=== PATIENT | male | born 1960 | race Caucasian/White ===

== ENCOUNTER 2019-04-29 10:41 | Emergency (ER) | payer BC, OTHER ==
[~2019-04-29] VITALS: Ht 182.9 cm; Wt 127.0 kg
[~2019-04-29 10:41] MED LIST: ATEN50TA; HYDR-4100; TRAZ150T77
--- NOTE | 2019-04-29 10:52 | NUR ---
Placed in room 1. Placed on threat monitoring analyst, blood pressure machine and pulse oximeter. To gown for exam. Side rails up. Report given to Zeenat GRIMM.
[2019-04-29 10:53] VITALS: BP_SYST 124
--- NOTE | 2019-04-29 10:55 | NUR ---
ER Dr. Waller at bedside examining patient.
--- NOTE | 2019-04-29 11:00 | NUR ---
Patient presented to ER with C/o chest pain & near syncope episode. Patient A&Ox4, ambulatory with cane to ER, C/o chest pain since Monday, denies N/v/d, pain 04/03. Patient states he had a near syncope episode at home today while he was ambullating up stairs at home, causing fall. Patient denies hitting head, denies KO.
[2019-04-29] MEDS ORDERED: NACL 0.9% 1,000 ML IV ONE (11:15)
[2019-04-29 11:30] LABS: BASOPHILS % (AUTO) 0.5 % (0.0-2.0); EOSINOPHILS # (AUTO) 0.2 K/uL (0.0-0.4); EOSINOPHILS % (AUTO) 3.2 % (0.0-4.0); HEMATOCRIT 43.5 % (36-54); LYMPHOCYTES # (AUTO) 1.7 K/uL (1.0-5.5); LYMPHOCYTES % (AUTO) 26.1 % (20.5-51.5); MEAN CORPUSCULAR HEMOGLOBIN 35 pg (27-31); MEAN CORPUSCULAR HGB CONC 35 % (32-36); MEAN CORPUSCULAR VOLUME 100 fL (79.0-98.0); MONOCYTES # (AUTO) 0.8 K/uL (0.0-1.0); NEUTROPHILS # (AUTO) 3.8 K/uL (1.8-7.7); NEUTROPHILS % (AUTO) 58.2 % (40.0-70.0); PLATELET COUNT (AUTO) 205 K/uL (130-430); RED BLOOD CELL COUNT(AUTO) 4.34 MIL/uL (4.2-6.2); RED CELL DISTRIBUTION WIDTH 14.2 % (9.0-15.0); WHITE BLOOD COUNT (AUTO) 6.6 K/uL (4.8-10.8)
[2019-04-29] MEDS ORDERED: fentaNYL CITRATE/PF 100 MCG/2 ML AMP IVP ONE (11:30)
[2019-04-29 11:37] LABS: CALCIUM 8.9 mg/dL (8.4-11.0); CREATININE 1.15 mg/dL (0.55-1.30); POTASSIUM 3.6 mmol/L (3.5-5.1)
[2019-04-29 11:41] LABS: INR 0.9 (0.80-1.20); PROTHROMBIN TIME 9.4 SECS (9.5-12.5)
[2019-04-29 11:43] LABS: ALBUMIN 3.3 g/dL (3.4-4.8); TOTAL BILIRUBIN 1.9 mg/dL (0.0-1.0)
--- NOTE | 2019-04-29 11:52 | NUR ---
Radiology at bedside
[2019-04-29] MEDS ORDERED: IOHEXOL 350 mgI/mL, 150 ML INFUS..BTL IV ONE (12:07)
--- NOTE | 2019-04-29 13:18 | NUR ---
Patient does not wish to proceed with medical care recommended by Dr. Villafuerte. Patient given information related to possible complications, up to and including , which could occur as a result of leaving hospital at this time. Patient verbalizes understanding of risks involved leaving against medical advice. Patient has signed AMA form.
== END 2019-04-29 13:18 | disposition home or self-care (01) ==
LOC: SED 10:41
DX: S92.512A Displaced fracture of proximal phalanx of left lesser toe(s), initial encounter for closed fracture (principal); R07.89 Other chest pain; R06.00 Dyspnea, unspecified; F17.210 Nicotine dependence, cigarettes, uncomplicated; I10 Essential (primary) hypertension; E78.00 Pure hypercholesterolemia, unspecified; E66.9 Obesity, unspecified; Z68.38 Body mass index [BMI] 38.0-38.9, adult; Z71.6 Tobacco abuse counseling; Z98.84 Bariatric surgery status; Z88.6 Allergy status to analgesic agent; Z88.8 Allergy status to other drugs, medicaments and biological substances; Z79.899 Other long term (current) drug therapy; W19.XXXA Unspecified fall, initial encounter; Y93.89 Activity, other specified; Y92.099 Unspecified place in other non-institutional residence as the place of occurrence of the external cause; Y99.8 Other external cause status
CPT/HCPCS: 36415; 71045; 71275; 73590; 73610; 73630; 80053; 82550; 83880; 84484; 85025; 85610; 85730; 93971; 96361; 96374; 99284; J3010; J7030; Q9967

== ENCOUNTER 2019-05-28 19:48 | Inpatient (IN) | payer OTHER ==
[~2019-05-28] VITALS: Ht 185.4 cm; Wt 131.5 kg
[2019-05-28 20:09] VITALS: BP_SYST 124
[2019-05-28] MEDS ORDERED: NALOXONE HCL 0.4 MG/ML AMP (NARCAN) ONE (20:29)
[2019-05-28] MEDS ORDERED: NACL 0.9% 1,000 ML IV ONE (20:30)
[2019-05-28] MEDS ORDERED: NALOXONE HCL 0.4 MG/ML AMP (NARCAN) IVP ONE ×2 (20:30→21:15)
[2019-05-28 20:52] LABS: BASOPHILS % (AUTO) 0.3 % (0.0-2.0); EOSINOPHILS # (AUTO) 0.3 K/uL (0.0-0.4); EOSINOPHILS % (AUTO) 2.9 % (0.0-4.0); HEMATOCRIT 38.8 % (36-54); HEMOGLOBIN 13.1 g/dL (14.0-18.0); LYMPHOCYTES # (AUTO) 1.5 K/uL (1.0-5.5); LYMPHOCYTES % (AUTO) 16.3 % (20.5-51.5); MEAN CORPUSCULAR HEMOGLOBIN 35 pg (27-31); MEAN CORPUSCULAR HGB CONC 34 % (32-36); MEAN CORPUSCULAR VOLUME 103 fL (79.0-98.0); MONOCYTES % (AUTO) 10.7 % (1.7-9.3); NEUTROPHILS # (AUTO) 6.6 K/uL (1.8-7.7); NEUTROPHILS % (AUTO) 69.8 % (40.0-70.0); PLATELET COUNT (AUTO) 279 K/uL (130-430); RED BLOOD CELL COUNT(AUTO) 3.78 MIL/uL (4.2-6.2); RED CELL DISTRIBUTION WIDTH 15.3 % (9.0-15.0); WHITE BLOOD COUNT (AUTO) 9.4 K/uL (4.8-10.8)
[2019-05-28 21:07] LABS: ANION GAP 13 (5-15); CALCIUM 9.5 mg/dL (8.4-11.0); CHLORIDE 106 mmol/L (98-107); CREATININE 2.26 mg/dL (0.55-1.30); GLUCOSE 101 mg/dL (70-99); SODIUM SERUM 142 mmol/L (136-145); UREA NITROGEN, BLOOD 31 mg/dL (8-21)
[2019-05-28 21:08] LABS: BILIRUBIN,URINE 1+ (NEGATIVE); BLOOD, URINE NEGATIVE (NEGATIVE); CLARITY/URINE CLEAR (CLEAR); COLOR,URINE YELLOW (YELLOW); GFR AFRICAN AMERICAN 38 mL/min (>90); GLUCOSE,URINE NEGATIVE (NEGATIVE); KETONES,URINE TRACE (NEGATIVE); LEUKOCYTE ESTERASE ,URINE NEGATIVE (NEGATIVE); NITRITE, URINE NEGATIVE (NEGATIVE); PROTEIN URINE NEGATIVE (NEGATIVE); UROBILINOGEN,URINE 0.2 (0.2-1.0)
[2019-05-28 21:13] LABS: ACETAMINOPHEN 11 ug/mL (1-30); ALANINE AMINOTRANSFERASE 49 U/L (12-78); ALBUMIN 3.3 g/dL (3.4-4.8); ASPARTATE AMINOTRANSFERASE 94 U/L (10-37); TOTAL BILIRUBIN 0.7 mg/dL (0.0-1.0)
[2019-05-28 21:14] LABS: ALCOHOL, BLOOD < 3 mg/dL (<10)
[2019-05-28 21:37] LABS: BARBITURATE, URINE NEGATIVE (NEG <=200); BENZODIAZEPINE, URINE POSITIVE (NEG <=150); CANNABINOID, URINE POSITIVE (NEG <=50); COCAINE, URINE NEGATIVE (NEG <=150); METHAMPHETAMINES SCREEN,URINE NEGATIVE (NEG <=500); OPIATE, URINE POSITIVE (NEG <=100); PHENCYCLIDINE SCREEN,URINE NEGATIVE (NEG <=25); UR TRICYCLIC ANTIDEPRESSANTS NEGATIVE (NEG <=300); URINE AMPHETAMINE NEGATIVE (NEG <=500); URINE METHADONE NEGATIVE (NEG <=200); URINE OXYCODONE SCREEN POSITIVE (NEG <=100); URINE PROPOXYPHENE SCREEN NEGATIVE (NEG <=300)
[2019-05-28] MEDS ORDERED: FLUMAZENIL 0.1 MG/ML IVP ONE (22:00)
[2019-05-28] MEDS ORDERED: D5W IV ONE ×3 (23:15)
[2019-05-28] MEDS ORDERED: ACETYLCYSTEINE IV ONE ×3 (23:15)
[2019-05-29] VITALS (7 sets, daily range): BP systolic 110–137
[2019-05-29] MEDS ORDERED: ALBUTEROL SULFATE 0.083% 2.5 MG/3 ML VIAL.NEB INH PRN
[2019-05-29] MEDS ORDERED: ONDANSETRON HCL 4 MG/2 ML VIAL IVP PRN
[2019-05-29] MEDS: NACL 0.9% 1,000 ML IV SCH ×3 (02:18→15:40)
[2019-05-29] MEDS ORDERED: ACETYLCYSTEINE IV 6000 MG/30 ML VIAL IV ONE ×2 (03:39→04:00)
[2019-05-29 06:16] LABS: BASOPHILS % (AUTO) 0.4 % (0.0-2.0); EOSINOPHILS # (AUTO) 0.2 K/uL (0.0-0.4); EOSINOPHILS % (AUTO) 2.7 % (0.0-4.0); HEMATOCRIT 36.6 % (36-54); HEMOGLOBIN 12.2 g/dL (14.0-18.0); LYMPHOCYTES # (AUTO) 1.8 K/uL (1.0-5.5); LYMPHOCYTES % (AUTO) 21.7 % (20.5-51.5); MEAN CORPUSCULAR HEMOGLOBIN 34 pg (27-31); MEAN CORPUSCULAR HGB CONC 33 % (32-36); MEAN CORPUSCULAR VOLUME 104 fL (79.0-98.0); MONOCYTES # (AUTO) 0.9 K/uL (0.0-1.0); MONOCYTES % (AUTO) 10.3 % (1.7-9.3); NEUTROPHILS # (AUTO) 5.4 K/uL (1.8-7.7); NEUTROPHILS % (AUTO) 64.9 % (40.0-70.0); PLATELET COUNT (AUTO) 267 K/uL (130-430); RED BLOOD CELL COUNT(AUTO) 3.53 MIL/uL (4.2-6.2); RED CELL DISTRIBUTION WIDTH 15.1 % (9.0-15.0); WHITE BLOOD COUNT (AUTO) 8.4 K/uL (4.8-10.8)
[2019-05-29 07:01] LABS: ALBUMIN 2.8 g/dL (3.4-4.8); CALCIUM 8.6 mg/dL (8.4-11.0); CREATININE 1.28 mg/dL (0.55-1.30); POTASSIUM 3.9 mmol/L (3.5-5.1); TOTAL BILIRUBIN 0.6 mg/dL (0.0-1.0)
[2019-05-29] MEDS: ATENOLOL 50 MG TABLET (TENORMIN) PO SCH (09:37)
[2019-05-29] MEDS: MORPHINE 2 MG/ML INJ. SYRINGE IVP PRN ×3 (09:37→22:26)
[2019-05-29] MEDS ORDERED: HEPARIN 25,000 UNITS/D5W 250ML 250 ML IV PRN (11:45)
[2019-05-29] MEDS ORDERED: *HEPARIN PER PHARMACY XX PRN (13:45)
[2019-05-29] MEDS: BALSAM PERU/CASTOR OIL 60 GM OINT...G. TP SCH (13:53)
[2019-05-29] MEDS ORDERED: HEPARIN SODIUM,PORCINE 5000 UNITS/ML VIAL IV ONE (14:00)
[2019-05-29] MEDS ORDERED: HEPARIN SODIUM,PORCINE 3000 UNITS/0.6 ML BOLUS IVP PRN (14:00)
[2019-05-29] MEDS ORDERED: HEPARIN SODIUM,PORCINE 2000 UNITS/0.4 ML BOLUS IVP PRN (14:00)
[2019-05-29] MEDS: HEPARIN 25,000 UNITS/D5W 250ML 250 ML IV PRN (15:22)
[2019-05-29] MEDS ORDERED: IPRATROPIUM/ALBUTEROL SULFATE 3 ML AMPUL.NEB (DUONEB) INH PRN (16:30)
[2019-05-29] MEDS: LORazepam 2 MG/ML VIAL IVP PRN (20:09)
[2019-05-29] MEDS: IPRATROPIUM/ALBUTEROL SULFATE 3 ML AMPUL.NEB (DUONEB) INH SCH (20:45)
[2019-05-30 00:22] VITALS: BP_SYST 126
[2019-05-30] MEDS: NACL 0.9% 1,000 ML IV SCH (01:34)
[2019-05-30 03:15] LABS: BASOPHILS # (AUTO) 0.1 K/uL (0.0-0.2); EOSINOPHILS # (AUTO) 0.2 K/uL (0.0-0.4); EOSINOPHILS % (AUTO) 3.5 % (0.0-4.0); HEMATOCRIT 34.6 % (36-54); HEMOGLOBIN 11.7 g/dL (14.0-18.0); LYMPHOCYTES # (AUTO) 2.1 K/uL (1.0-5.5); LYMPHOCYTES % (AUTO) 29.9 % (20.5-51.5); MEAN CORPUSCULAR HEMOGLOBIN 35 pg (27-31); MEAN CORPUSCULAR HGB CONC 34 % (32-36); MEAN CORPUSCULAR VOLUME 102 fL (79.0-98.0); MONOCYTES # (AUTO) 0.7 K/uL (0.0-1.0); MONOCYTES % (AUTO) 9.6 % (1.7-9.3); NEUTROPHILS # (AUTO) 3.8 K/uL (1.8-7.7); PLATELET COUNT (AUTO) 258 K/uL (130-430); RED BLOOD CELL COUNT(AUTO) 3.38 MIL/uL (4.2-6.2); RED CELL DISTRIBUTION WIDTH 15.7 % (9.0-15.0); WHITE BLOOD COUNT (AUTO) 6.9 K/uL (4.8-10.8)
[2019-05-30 03:29] LABS: PROTHROMBIN TIME 10.6 SECS (9.5-12.5)
[2019-05-30 03:30] LABS: ALBUMIN 2.4 g/dL (3.4-4.8); CALCIUM 8.3 mg/dL (8.4-11.0); CREATININE 0.75 mg/dL (0.55-1.30); POTASSIUM 3.2 mmol/L (3.5-5.1); TOTAL BILIRUBIN 0.3 mg/dL (0.0-1.0)
[2019-05-30] MEDS: HEPARIN 25,000 UNITS/D5W 250ML 250 ML IV PRN ×4 (04:29→20:38)
[2019-05-30] MEDS: LORazepam 2 MG/ML VIAL IVP PRN ×3 (06:24→20:46)
[2019-05-30] MEDS: IPRATROPIUM/ALBUTEROL SULFATE 3 ML AMPUL.NEB (DUONEB) INH SCH ×3 (07:00→21:00)
[2019-05-30] MEDS ORDERED: chlordiazePOXIDE HCL 25 MG CAPSULE PO ONE (08:00)
[2019-05-30] MEDS ORDERED: THIAMINE HCL 100 MG TABLET PO ONE (08:00)
[2019-05-30 08:21] VITALS: BP_SYST 136
[2019-05-30] MEDS: ATENOLOL 50 MG TABLET (TENORMIN) PO SCH (08:26)
[2019-05-30] MEDS ORDERED: POTASSIUM CHLORIDE 20 MEQ TAB.PRT.SR PO ONE (09:45)
[2019-05-30 11:10] LABS: ALBUMIN 2.4 g/dL (3.4-4.8); BILIRUBIN,DIRECT 0.1 mg/dL (0.0-0.3); TOTAL BILIRUBIN 0.4 mg/dL (0.0-1.0)
[2019-05-30 12:22] VITALS: BP_SYST 148
[2019-05-30] MEDS: MORPHINE 2 MG/ML INJ. SYRINGE IVP PRN ×3 (12:46→21:23)
[2019-05-30] MEDS: chlordiazePOXIDE HCL 25 MG CAPSULE PO SCH ×2 (14:38→20:45)
[2019-05-30] MEDS: BALSAM PERU/CASTOR OIL 60 GM OINT...G. TP SCH (15:24)
[2019-05-30 16:23] VITALS: BP_SYST 154
[2019-05-30] MEDS ORDERED: WARFARIN SODIUM 5 MG TABLET PO ONE (18:00)
[2019-05-30 20:00] VITALS: BP_SYST 139
[2019-05-30] MEDS ORDERED: HEPARIN 25,000 UNITS/D5W 250ML 250 ML IV ONE (20:04)
[2019-05-30] MEDS: TEMAZEPAM 15 MG CAPSULE PO PRN (23:59)
[2019-05-31] VITALS: BP_SYST 157
[2019-05-31] MEDS: LORazepam 2 MG/ML VIAL IVP PRN ×3 (01:36→22:20)
[2019-05-31 03:12] LABS: BASOPHILS # (AUTO) 0.1 K/uL (0.0-0.2); BASOPHILS % (AUTO) 0.9 % (0.0-2.0); EOSINOPHILS # (AUTO) 0.3 K/uL (0.0-0.4); EOSINOPHILS % (AUTO) 3.6 % (0.0-4.0); HEMATOCRIT 34.5 % (36-54); HEMOGLOBIN 11.7 g/dL (14.0-18.0); LYMPHOCYTES # (AUTO) 2.6 K/uL (1.0-5.5); MEAN CORPUSCULAR HEMOGLOBIN 35 pg (27-31); MEAN CORPUSCULAR HGB CONC 34 % (32-36); MEAN CORPUSCULAR VOLUME 104 fL (79.0-98.0); MONOCYTES # (AUTO) 0.7 K/uL (0.0-1.0); MONOCYTES % (AUTO) 8.9 % (1.7-9.3); NEUTROPHILS # (AUTO) 4.6 K/uL (1.8-7.7); NEUTROPHILS % (AUTO) 55.6 % (40.0-70.0); PLATELET COUNT (AUTO) 253 K/uL (130-430); RED BLOOD CELL COUNT(AUTO) 3.34 MIL/uL (4.2-6.2); RED CELL DISTRIBUTION WIDTH 15.1 % (9.0-15.0); WHITE BLOOD COUNT (AUTO) 8.3 K/uL (4.8-10.8)
[2019-05-31 03:30] LABS: ALBUMIN 2.6 g/dL (3.4-4.8); CALCIUM 8.8 mg/dL (8.4-11.0); CREATININE 0.9 mg/dL (0.55-1.30); TOTAL BILIRUBIN 0.3 mg/dL (0.0-1.0)
[2019-05-31 03:38] LABS: PROTHROMBIN TIME 10.6 SECS (9.5-12.5)
[2019-05-31] MEDS: IPRATROPIUM/ALBUTEROL SULFATE 3 ML AMPUL.NEB (DUONEB) INH SCH ×2 (07:00→21:00)
[2019-05-31 08:05] VITALS: BP_SYST 156
[2019-05-31] MEDS: HEPARIN 25,000 UNITS/D5W 250ML 250 ML IV PRN ×2 (08:20→20:27)
[2019-05-31] MEDS: THIAMINE HCL 100 MG TABLET PO SCH (08:23)
[2019-05-31] MEDS: chlordiazePOXIDE HCL 25 MG CAPSULE PO SCH ×3 (08:23→20:36)
[2019-05-31] MEDS: MORPHINE 2 MG/ML INJ. SYRINGE IVP PRN ×4 (08:24→23:14)
[2019-05-31] MEDS: ATENOLOL 50 MG TABLET (TENORMIN) PO SCH (08:24)
[2019-05-31 12:34] VITALS: BP_SYST 148
[2019-05-31 16:53] VITALS: BP_SYST 150
[2019-05-31] MEDS ORDERED: WARFARIN SODIUM 7.5 MG TABLET PO SCH (18:00)
[2019-05-31] MEDS: BALSAM PERU/CASTOR OIL 60 GM OINT...G. TP SCH (18:55)
[2019-05-31] MEDS: TEMAZEPAM 15 MG CAPSULE PO PRN (22:21)
[2019-05-31] MEDS ORDERED: MORPHINE 2 MG/ML INJ. SYRINGE IVP PRN (23:00)
[2019-05-31] MEDS ORDERED: MORPHINE 2 MG/ML INJ. SYRINGE ONE (23:22)
[2019-05-31 23:51] VITALS: BP_SYST 146
[2019-06-01] MEDS: MORPHINE 2 MG/ML INJ. SYRINGE IVP PRN (03:39)
[2019-06-01 05:59] LABS: BASOPHILS % (AUTO) 0.4 % (0.0-2.0); EOSINOPHILS # (AUTO) 0.3 K/uL (0.0-0.4); EOSINOPHILS % (AUTO) 3.9 % (0.0-4.0); HEMATOCRIT 34.1 % (36-54); HEMOGLOBIN 11.5 g/dL (14.0-18.0); LYMPHOCYTES % (AUTO) 25.3 % (20.5-51.5); MEAN CORPUSCULAR HEMOGLOBIN 35 pg (27-31); MEAN CORPUSCULAR HGB CONC 34 % (32-36); MEAN CORPUSCULAR VOLUME 103 fL (79.0-98.0); MONOCYTES # (AUTO) 0.7 K/uL (0.0-1.0); NEUTROPHILS # (AUTO) 4.9 K/uL (1.8-7.7); NEUTROPHILS % (AUTO) 61.4 % (40.0-70.0); PLATELET COUNT (AUTO) 257 K/uL (130-430); RED BLOOD CELL COUNT(AUTO) 3.32 MIL/uL (4.2-6.2)
[2019-06-01] MEDS: IPRATROPIUM/ALBUTEROL SULFATE 3 ML AMPUL.NEB (DUONEB) INH SCH (07:00)
[2019-06-01 07:50] VITALS: BP_SYST 121
[2019-06-01] MEDS: THIAMINE HCL 100 MG TABLET PO SCH (09:39)
[2019-06-01] MEDS: chlordiazePOXIDE HCL 25 MG CAPSULE PO SCH (09:39)
[2019-06-01] MEDS: ATENOLOL 50 MG TABLET (TENORMIN) PO SCH (09:40)
[2019-06-01] MEDS: BALSAM PERU/CASTOR OIL 60 GM OINT...G. TP SCH (09:59)
[2019-06-01 10:04] LABS: INR 1.1 (0.80-1.20); PROTHROMBIN TIME 11.2 SECS (9.5-12.5)
[2019-06-01 10:17] VITALS: BP_SYST 121
[2019-06-01] MEDS ORDERED: ASPI-1153 PO (10:20)
[2019-06-01] MEDS ORDERED: MULT1POW2 PO (10:20)
[2019-06-01] MEDS ORDERED: MULTI VITAMIN PO (10:23)
== END 2019-06-01 11:10 | disposition home or self-care (01) | DRG 917 ==
LOC: SED 19:48 → STU 23:55 → SMU 05-31 10:15
PROVIDERS: ADMIT Internal Medicine Hospice and Palliative Medicine; ATTEND Internal Medicine Hospice and Palliative Medicine
DX: T39.1X1A Poisoning by 4-Aminophenol derivatives, accidental (unintentional), initial encounter (principal); G92 Toxic encephalopathy; N17.0 Acute kidney failure with tubular necrosis; E44.0 Moderate protein-calorie malnutrition; T43.211A Poisoning by selective serotonin and norepinephrine reuptake inhibitors, accidental (unintentional), initial encounter; E78.5 Hyperlipidemia, unspecified; F10.20 Alcohol dependence, uncomplicated; F17.210 Nicotine dependence, cigarettes, uncomplicated; G89.29 Other chronic pain; I10 Essential (primary) hypertension; N40.0 Benign prostatic hyperplasia without lower urinary tract symptoms; M77.32 Calcaneal spur, left foot; E66.9 Obesity, unspecified; F32.9 Major depressive disorder, single episode, unspecified; M19.90 Unspecified osteoarthritis, unspecified site; F43.20 Adjustment disorder, unspecified; E78.00 Pure hypercholesterolemia, unspecified; Z81.1 Family history of alcohol abuse and dependence; Z82.49 Family history of ischemic heart disease and other diseases of the circulatory system; Z86.711 Personal history of pulmonary embolism; Z98.84 Bariatric surgery status; Z79.899 Other long term (current) drug therapy; Z88.8 Allergy status to other drugs, medicaments and biological substances; Z68.38 Body mass index [BMI] 38.0-38.9, adult
CPT/HCPCS: 36415; 80053; 80076; 80307; 81003; 85025; 85610-TC; 85730-TC; 87081; 93005; 94640; G0378; G0480; G0481; G0482; J0132; J1644; J2060; J2270; J2310; J2405; J3490; J7030; J7060; J7620

== ENCOUNTER 2022-01-10 16:06 | Inpatient (IN) | payer OTHER ==
[~2022-01-10] VITALS: Ht 185.4 cm; Wt 120.6 kg
[~2022-01-10 16:06] MED LIST changes: +ASPI-1393 PO; +HYDR-3927; -HYDR-4100; +MULTI VITAMIN PO
[2022-01-10 16:13] VITALS: BP_SYST 128
--- NOTE | 2022-01-10 16:13 | NUR ---
Patient triaged and placed in ER HALLWAY. VSS and patient appears in no acute distress at this time. Accompanied by BLS, awaiting available bed, and MD notified of need for MSE.
--- NOTE | 2022-01-10 16:24 | NUR ---
DR. CAMPUZANO EXAMING PATIENT IN [facility]
[2022-01-10] MEDS ORDERED: ACETAMINOPHEN 500 MG TABLET PO ONE ×2 (16:30→20:15)
--- NOTE | 2022-01-10 16:38 | NUR ---
Xray done at
[2022-01-10 17:05] LABS: BASOPHILS # (AUTO) 0.1 K/uL (0.0-0.2); BASOPHILS % (AUTO) 0.5 % (0.0-2.0); EOSINOPHILS # (AUTO) 0.4 K/uL (0.0-0.4); EOSINOPHILS % (AUTO) 3.8 % (0.0-4.0); HEMATOCRIT 41.3 % (36-54); LYMPHOCYTES # (AUTO) 2.3 K/uL (1.0-5.5); LYMPHOCYTES % (AUTO) 21.9 % (20.5-51.5); MEAN CORPUSCULAR HEMOGLOBIN 33 pg (27-31); MEAN CORPUSCULAR HGB CONC 34 % (32-36); MEAN CORPUSCULAR VOLUME 96 fL (79.0-98.0); MONOCYTES # (AUTO) 0.8 K/uL (0.0-1.0); MONOCYTES % (AUTO) 8.1 % (1.7-9.3); NEUTROPHILS # (AUTO) 6.8 K/uL (1.8-7.7); NEUTROPHILS % (AUTO) 65.7 % (40.0-70.0); PLATELET COUNT (AUTO) 294 K/uL (130-430); RED BLOOD CELL COUNT(AUTO) 4.29 MIL/uL (4.2-6.2); RED CELL DISTRIBUTION WIDTH 15.3 % (9.0-15.0); WHITE BLOOD COUNT (AUTO) 10.4 K/uL (4.8-10.8)
[2022-01-10 17:22] LABS: CALCIUM 9.5 mg/dL (8.4-11.0); CREATININE 1.35 mg/dL (0.55-1.30); POTASSIUM 4.1 mmol/L (3.5-5.1)
[2022-01-10 17:28] LABS: ALBUMIN 3.5 g/dL (3.4-4.8); TOTAL BILIRUBIN 0.4 mg/dL (0.0-1.0)
[2022-01-10] MEDS ORDERED: ceFAZolin SODIUM 1 GM in D5W 50 ML IV ONE (19:45)
[2022-01-10] MEDS ORDERED: MUPIROCIN 2% TOPICAL OINTMENT 22 GM NS PRN (20:00)
[2022-01-10] MEDS ORDERED: ZOLPIDEM TARTRATE 5 MG TABLET PO PRN (20:00)
[2022-01-10] MEDS ORDERED: MORPHINE 2 MG/ML INJ. SYRINGE IVP PRN ×2 (20:00)
[2022-01-10] MEDS ORDERED: POTASSIUM CHLORIDE 20 MEQ TAB.PRT.SR PO PRN (20:00)
[2022-01-10] MEDS ORDERED: ONDANSETRON HCL 4 MG/2 ML VIAL IVP PRN (20:00)
[2022-01-10] MEDS ORDERED: LORazepam 2 MG/ML VIAL IVP PRN (20:00)
[2022-01-10] MEDS ORDERED: NACL 0.9% 1,000 ML IV ONE (20:00)
[2022-01-10] MEDS ORDERED: DOCUSATE SODIUM 100 MG CAPSULE PO PRN (20:00)
[2022-01-10] MEDS ORDERED: ACETAMINOPHEN 325 MG TABLET PO PRN (20:00)
[2022-01-10] MEDS ORDERED: MAGNESIUM SULFATE 50 ML IV PRN (20:00)
--- NOTE | 2022-01-10 20:02 | NUR ---
Admit bed requested Patient will be admitted to care of . Admitted to Med Surg unit. Diagnosis Left Lower Extremity Inpatient (Yes or No) yes Observation (Yes or No) Orientation concerns or request close to nursing station (Yes or No) NO Covid Status pending From Home (Yes or if No enter name of facility) yes
[2022-01-10 20:34] LABS: BILIRUBIN,URINE NEGATIVE (NEGATIVE); BLOOD, URINE NEGATIVE (NEGATIVE); CLARITY/URINE CLEAR (CLEAR); COLOR,URINE YELLOW (YELLOW); GLUCOSE,URINE NEGATIVE (NEGATIVE); KETONES,URINE NEGATIVE (NEGATIVE); LEUKOCYTE ESTERASE ,URINE NEGATIVE (NEGATIVE); NITRITE, URINE NEGATIVE (NEGATIVE); PROTEIN URINE NEGATIVE (NEGATIVE); UROBILINOGEN,URINE 0.2 (0.2-1.0)
[2022-01-10] MEDS ORDERED: ceFAZolin SODIUM 1 GM VIAL ONE (21:08)
--- NOTE | 2022-01-10 21:37 | NUR ---
Gave report to zheng for admission
[2022-01-10] MEDS: traZODone HCL 50 MG TABLET (DESYREL) PO SCH (22:17)
[2022-01-10] MEDS: HEPARIN SODIUM,PORCINE 5,000 UNITS/ML VIAL SUBCUT SCH (22:20)
[2022-01-11 00:15] VITALS: BP_SYST 108
[2022-01-11 04:28] VITALS: BP_SYST 108
[2022-01-11 07:10] LABS: CALCIUM 8.2 mg/dL (8.4-11.0); CREATININE 1.13 mg/dL (0.55-1.30); POTASSIUM 3.6 mmol/L (3.5-5.1)
[2022-01-11 07:17] LABS: BASOPHILS % (AUTO) 0.4 % (0.0-2.0); EOSINOPHILS # (AUTO) 0.3 K/uL (0.0-0.4); EOSINOPHILS % (AUTO) 4.4 % (0.0-4.0); HEMATOCRIT 40.4 % (36-54); HEMOGLOBIN 13.5 g/dL (14.0-18.0); LYMPHOCYTES % (AUTO) 26.4 % (20.5-51.5); MEAN CORPUSCULAR HEMOGLOBIN 32 pg (27-31); MEAN CORPUSCULAR HGB CONC 33 % (32-36); MEAN CORPUSCULAR VOLUME 97 fL (79.0-98.0); MONOCYTES # (AUTO) 0.8 K/uL (0.0-1.0); MONOCYTES % (AUTO) 10.3 % (1.7-9.3); NEUTROPHILS # (AUTO) 4.4 K/uL (1.8-7.7); NEUTROPHILS % (AUTO) 58.5 % (40.0-70.0); PLATELET COUNT (AUTO) 264 K/uL (130-430); RED BLOOD CELL COUNT(AUTO) 4.18 MIL/uL (4.2-6.2); RED CELL DISTRIBUTION WIDTH 14.7 % (9.0-15.0); WHITE BLOOD COUNT (AUTO) 7.5 K/uL (4.8-10.8)
[2022-01-11 07:45] VITALS: BP_SYST 133
--- NOTE | 2022-01-11 08:00 | NUR ---
am notes pt in bed.a/ox4. denies any pain or sob. res even and unlabored. vitals stable. safety and fall precautions in place, call lightwithin reach. poc discussed with pt.verbalized understanding 0900- walked with pt with walker. seen by dr hernandez. 1030-iv insertion - iv infiltrated. new iv line started on left hand #22. with good blood return. flushed well. no s/s of infiltration noted.pt tolerated well . not in acute distress.
[2022-01-11] MEDS ORDERED: ASPIRIN 81 MG TABLET(ECOTRIN) PO SCH (09:00)
[2022-01-11] MEDS ORDERED: ATENOLOL 50 MG TABLET (TENORMIN) PO SCH (09:00)
[2022-01-11] MEDS ORDERED: cefTRIAXone 1 GM in D5W 50 ML IV SCH ×4 (09:00)
[2022-01-11] MEDS: HEPARIN SODIUM,PORCINE 5,000 UNITS/ML VIAL SUBCUT SCH ×2 (09:03→21:00)
[2022-01-11] MEDS ORDERED: METHYLPREDNISOLONE SOD SUCC 40 MG/ML VIAL IVP ONE (09:30)
--- NOTE | 2022-01-11 10:03 | NUR ---
CONSULTATION PAGED REASON FOR CONSULTATION:BL LUMBAR RADICULOPATHY WAS CONSULT CALLED?Y PERSON WHO WAS NOTIFIED:TEXT MESSAGED LASHAY CHOWDHURY CONSULTING PHYSICIAN:LASHAY CHOWDHURY [employer] SPECIALTY:NE[employer] PHONE NUMBER: [phone] REQUESTING PHYSICIAN:[facility]
[2022-01-11 11:41] VITALS: BP_SYST 129
--- NOTE | 2022-01-11 11:44 | NUR ---
Dietitian Recommendations * Continue Regular diet * Encourage PO intake Please refer to Nutrition Assessment for details. Addendum: 01/11/22 at [address] Amended: Links added.
--- NOTE | 2022-01-11 12:30 | NUR ---
iv came out pt new iv came out . pt refusing to have iv insertion at this time. pt stated u can insert new iv tonight. will continue to monitor
--- NOTE | 2022-01-11 14:20 | NUR ---
c/o of pain pt c/o of pain. refusing morphine . pt asking for norco. called dr hernandez and notify. new order received
[2022-01-11] MEDS: HYDROcodone/ACETAMIN 5-325 MG TAB (NORCO/ VICODIN) PO PRN ×2 (15:31→21:24)
[2022-01-11 15:38] VITALS: BP_SYST 138
[2022-01-11] MEDS ORDERED: METHYLPREDNISOLONE SOD SUCC 40 MG/ML VIAL IVP SCH (17:00)
--- NOTE | 2022-01-11 17:30 | NUR ---
NEW IV INSERTION NEW IV LINE STARTED ON RT HAND #22. FLUSHED WELL. NO S/S OF INFILTRATIONS NOTED . NEEDS ATTENDED.
--- NOTE | 2022-01-11 18:30 | NUR ---
IV PULLED OUT. PT STATED HE WENT TO BATHROOM AND WHEN HE WAS CLEANING HIMSELF. IV LINE CAME OUT BUT NO BLOOD AND HE THREW HIS IV IN TRASH CAN. CLEAN DRESSING APPLIED ON RT HAND . NO BLEEDING NOTED. WILL ENDORSE NIGHT NURSE TO PUT NEW IV LINE.
[2022-01-11] MEDS ORDERED: traZODone HCL 50 MG TABLET (DESYREL) PO PRN (19:30)
--- NOTE | 2022-01-11 20:30 | NUR ---
pT WITH NO IV AT SHIFT CHANGE. pER CH TO START LATER AND GIVE MEDS PT STATES NO WONTS TO GO TO SLEEP NO . ATTEMP IV BLOW , PT STATES HIS HANDS ARMS ALL BRUISED ,NOT OBSERVED ADVISED PREVIOUS NURSE AND CH OF PT COMPLAINTS.
--- NOTE | 2022-01-11 21:18 | NUR ---
At pt bedside states has had no activity and wonts to go home c informed states he can go , household refrigeration mechanic informed Addendum: 01/12/22 at 0016 by [facility] two piercing artist PT STATES HE WONTS TRAZODONE AND NORCO, MEDS GIVEN PT INFORMED THAT GIVEN MEDS HE CAN NOT AMBULATE W/O ASSIST , AND WAS HE PLANNING TO STAY. pT TAKES EDS AND STATES HE WILL STAY JUST WONTS MEDICATION. pT AFTER A HOUR STATES HE WONTS TO LEAVE MEDICAL OFFICE SUPERVISOR NOTIFIED AGAIN , PT UP AT DESK. MEDICAL OFFICE SUPERVISOR AT BEDSIDE
[2022-01-11] MEDS: traZODone HCL 50 MG TABLET (DESYREL) PO SCH (21:47)
--- NOTE | 2022-01-11 23:09 | NUR ---
Called by primary nurse manuelito Andino to come see the patient because he is asking to leave against medical advice. I found the patient sitting fully dressed on the bed. He is alert and fully oriented to person/place/time. Stated to me that he wants to go home because he is not getting the treatment he needs. He has not been able to sleep since being admitted, and he has not been seen by the physical therapist. He states that staff have not been able to restart his IV and he just wants to go home. He states that he has Dr. Mckeon as PMD and will follow-up with him. States that he knows what he needs to do and when I asked about pain medications, he said he has all he needs at home. Nurse informed me that he was medicated with Trazadone and [place] at 2100, pt states that there has been no effect and he is still unable to sleep. He states that he will call [employer] for a ride home. Dr Bermeo notified. Patient signed AMA form and was escorted to the ER waiting room at patient request to wait for his [employer] ride via wheelchair by security. Pt stated that he had all his belongings. Pt was steady on feet, alert and oriented x4.
--- NOTE | 2022-01-11 23:19 | NUR ---
Belongings included patient own walker.
== END 2022-01-11 23:10 | disposition left against medical advice (07) | DRG 551 ==
LOC: SED 16:06 → SMU 20:00
PROVIDERS: ADMIT General Practice; ATTEND General Practice
DX: M47.26 Other spondylosis with radiculopathy, lumbar region (principal); N17.0 Acute kidney failure with tubular necrosis; L03.116 Cellulitis of left lower limb; M48.56XA Collapsed vertebra, not elsewhere classified, lumbar region, initial encounter for fracture; G62.9 Polyneuropathy, unspecified; F12.90 Cannabis use, unspecified, uncomplicated; E78.00 Pure hypercholesterolemia, unspecified; Z53.29 Procedure and treatment not carried out because of patient's decision for other reasons; I10 Essential (primary) hypertension; Z20.822 Contact with and (suspected) exposure to COVID-19; M51.16 Intervertebral disc disorders with radiculopathy, lumbar region; Z87.891 Personal history of nicotine dependence; Z79.891 Long term (current) use of opiate analgesic; Z86.718 Personal history of other venous thrombosis and embolism; Z88.6 Allergy status to analgesic agent; Z79.82 Long term (current) use of aspirin; Z79.899 Other long term (current) drug therapy; Z98.1 Arthrodesis status
CPT/HCPCS: 36415; 72131; 72170-TC; 76376; 80048; 80053; 81003; 82962; 83605; 83735; 85025; 87040; 87086; 93971; 96365; 99285; J0690; J0696; J1030; J1644; J2270; J7060

== ENCOUNTER → 2023-04-18 | Outpatient (CLI) | payer OTHER | END | disposition home or self-care (01) | LOC: SNM 06:44 | PROVIDERS: ATTEND Urology Pediatric Urology | DX: M48.062 Spinal stenosis, lumbar region with neurogenic claudication (principal); M48.46 Fatigue fracture of vertebra, lumbar region; X58.XXXS Exposure to other specified factors, sequela | CPT/HCPCS: 78306; A9503 ==